=== PATIENT | male | born 1965 | race African-American/Black ===

== ENCOUNTER 2021-06-19 23:19 | Inpatient (IN) | payer OTHER ==
[~2021-06-19] VITALS: Ht 180.3 cm; Wt 230.0 kg
--- NOTE | ~2021-06-19 | EMS ---
Formerly [facility] [address] [place] [address] EMS Patient Care Report Name: NARAYAN VERGARA Room #: 210-P ADM IN M.R.#: [id number] Admission: 06/20/21 Attend Phys: Abe Carlton MD Discharge: Date of : 67 Report #: [id number] THIS REPORT FOR: //name// Report Transmitted: 06/20/2021 08:31 EMS Care Summary [place], [place]/[facility] Incident [id number] @ 06/19/2021 22:01 Incident Location [address] [place] [address] Patient NARAYAN VERGARA Male, 56 Years 1965 Patient Address [address] [place] [address] Patient History Congestive Heart Failure (CHF),Diabetes,Hypertension (HTN),Morbid Obesity,Atrial Fibrillation,Deep Vein Thrombosis,Chronic Kidney Disease, Patient Allergies No known allergies, Patient Medications Senna, Spironolactone, Aspirin, Lovenox, Humalog, Warfarin, Atorvastatin, Polyethlene Glycol, Amiodarone, Torsemide, Lantus, Carvedilol, Digoxin, Zetia, Chief Complaint COVID SYMPTOMS Disposition Transported No Lights/[place] Dispatch Reason Sick Person Transported To [facility] Narrative PUMPER 29/TRUCK 11/MEDIC 30 WERE DISPATCHED TO THE ADDRESS LISTED PREVIOUSLY IN THIS REPORT ON A SICK PATIENT. UPON ARRIVAL, EMS OBSERVED ONE MALE PATIENT Formerly [facility] [address] [place] [address] EMS Patient Care Report Name: NARAYAN VERGARA Room #: 210-P ADM IN M.R.#: [id number] Admission: 06/20/21 Attend Phys: Abe Carlton MD Discharge: Date of : 67 Report #: [id number] SITTING UPRIGHT ON THE FLOOR. PATIENT WAS TRACKING EMS UPON APPROACH. PATIENT INFORMED EMS THAT HE HAD BEEN EXPERIENCING COVID LIKE SYMPTOMS FOR THREE DAYS PRIOR TO EMS ARRIVAL. PATIENT WAS THEN PLACED ON A BRITTNEY CUSTOMER RESPONSE REPRESENTATIVE, CARRIED TO THE COT, AND LOADED INTO THE AMBULANCE WITHOUT INCIDENT. ONCE IN THE AMBULANCE, VITAL SIGN MONITORING CONTINUED. ONCE ENROUTE TO THE RECEIVING FACILITY ([facility]), VITAL SIGN MONITORING CONTINIED AND RADIO REPORT WAS GIVEN. UPON ARRIVAL AT THE RECEIVING FACILITY, PATIENT WAS MOVED FROM THE AMBULANCE TO THE HOSPITAL COT WITHOUT INCIDENT. VERBAL REPORT WAS GIVEN TO THE PATIENT'S NURSE AND PATIENT CARE WAS TRANSFERRED. Initial Vitals @22:43P: 79,R: 16,BP: 144/95,Pain: 0/10,GCS: 15,CO: 3,SpO2: 95,Revised Trauma: 12, Assessments @22:09MENTAL:Person Oriented,Place Oriented,Event Oriented,Time Oriented,SKIN:HEENT:LUNG SOUNDS:ABDOMEN:PELVIS//GI:EXTREMITIES:PULSE:Radial: 2+ Normal,NEURO: Impression Generalized Weakness Procedures @22:09ALS AssessmentResponse: UnchangedSucceeded Timeline :59,Call Received 21:59,Dispatch Notified 22:01,Dispatched 22:01,En Route 22:07,On Scene 22:09,At Patient 22:09,ALS Assessment,Response: UnchangedSucceeded, 22:43,BP: 144/95 M,PULSE: 79,RR: 16 R,SPO2: 95 Ox,ETCO2: ,BG: ,PAIN: 0,GCS: 15, 22:46,Depart Scene 23:07,At Destination 23:31,Call Closed Disclaimer v1.1 Copyright 2020 [facility] This EMS Care Summary contains data elements from the applicable legal record (which may be displayed differently). It is designed to provide pertinent information for the following purposes: continuity of care, clinical quality, and state data reporting. The complete legal record is available to ED staff and administrators of the receiving hospital in [facility]'s Patient Tracker. All data is provided "as is."
[2021-06-19 23:20] VITALS: BP 160/82
[2021-06-19] MEDS ORDERED: ENTRESTO 24 MG1 EACH PO (23:28)
[2021-06-19] MEDS ORDERED: AMIODARONE HCL400 MG PO (23:28)
[2021-06-19] MEDS ORDERED: WARFARIN SODIUM6 MG PO (23:29)
[2021-06-19] MEDS ORDERED: TORSEMIDE20 MG PO (23:29)
[2021-06-20 00:18] LABS: BE(vivo) -3.1 mmol/L (-2 to +3); HCO3 21.9 mmol/L (22.0-26.0); PCO2 39.1 mmHg (35.0-45.0); PO2 91.1 mmHg (80.0-100.0); pH 7.366 (7.360-7.450); sO2 96.8 % (92.0-98.0)
[2021-06-20 01:27] LABS: ABSOLUTE NEUTROPHILS 4.7 thou/uL (1.4-8.2); BASOPHILS 0.6 % (0.0-2.0); EOSINOPHILS 0.7 % (0.0-3.0); HEMATOCRIT 38.2 % (42.0-52.0); HEMOGLOBIN 12.5 gm/dL (14.0-18.0); LYMPHOCYTES 18.7 % (24.0-44.0); MCH 29.1 pg (26.0-34.0); MCHC 32.8 g/dL (28.0-37.0); MCV 88.7 fL (80.0-100.0); MONOCYTES 10.6 % (1.0-8.0); PLATELET COUNT 184 thou/uL (150-400); POLYS 69.4 % (36.0-66.0); RDW 17.1 % (10.5-14.5); WBC 6.7 thou/uL (4.0-11.0)
[2021-06-20 02:06] LABS: CALCIUM 7.7 mg/dL (8.5-10.1); CREATININE 2.5 mg/dL (0.7-1.3); POTASSIUM 4.8 mmol/L (3.5-5.1)
[2021-06-20 02:13] LABS: ALBUMIN 2.6 g/dL (3.4-5.0); TOTAL BILIRUBIN 0.7 mg/dL (0.2-1.0); TOTAL PROTEIN 7.2 g/dL (6.4-8.2); TROPONIN-I 0.08 ng/mL (<0.06)
[2021-06-20 02:16] LABS: URINE BILIRUBIN NEGATIVE (Negative); URINE BLOOD NEGATIVE (Negative); URINE CLARITY CLEAR; URINE COLOR YELLOW; URINE GLUCOSE-RANDOM* 2+ (Negative); URINE KETONES TRACE (Negative); URINE LEUKOCYTES-REFLEX NEGATIVE (Negative); URINE NITRITE-REFLEX NEGATIVE (Negative); URINE PROTEIN (DIPSTICK) 2+ (Negative); URINE SPECIFIC GRAVITY >= 1.030 (1.005-1.035)
[2021-06-20 02:43] LABS: BACTERIA-REFLEX 1-9 Few /HPF (None Seen); CASTS None Seen /LPF (None Seen); CRYSTALS None Seen /LPF (None Seen); MUCUS 4-6 Moderate strn/LPF (None Seen); SQUAMOUS 0-3 Few /LPF (0-3); URINE RBC 1-2 Rare /HPF (NONE SEEN); URINE WBC-REFLEX 0-5 Rare /HPF (0-5)
[2021-06-20 02:54] LABS: APTT 26.8 Seconds (24.5-32.8); INR 2.16; PROTIME 22.7 Seconds (10.5-12.1)
--- NOTE | 2021-06-20 03:25 | NUR ---
PHYSICIAN, THIS CHARGE NURSE AND LICENSE INSPECTOR HAVE BEEN TO PATIENT'S BEDSIDE REPEATEDLY. PATIENT IS NOT ACCEPTING ANY EDUCATION PROVIDED TO HIM. PATIENT IS BELIGERENT AND HAS DONE EVERYTHING TO NOT FOLLOW INSTRUCTIONS FOR HIS CARE. PATIENT HAS BEEN SITTING HIMSELF UP TO SIDE OF BED REGARDLESS OF REQUESTS FOR PATIENT TO REMAIN IN BED FOR HIS SAFETY. PATIENT IS 600+LBS AND EDUCATION HAS BEEN PROVIDED TO KEEP PATIENT SAFE. PATIENT IS REFUSING CARE, BUT IS UNABLE AMBULATE OR LEAVE DEPARTMENT SAFELY. NOT ABLE TO REACH SISTER AT THIS TIME
[2021-06-20 07:15] VITALS: BP 155/84
[2021-06-20 07:52] VITALS: BP 155/84
[2021-06-20 08:49] LABS: CHOLESTEROL 147 mg/dL (<200); HDL CHOLESTEROL 34 mg/dL (>40); LDL CHOLESTEROL 90 mg/dL (<100); TC:HDL 4.3 Ratio (Not establshd); TRIGLYCERIDE 115 mg/dL (<150); VLDL 23 mg/dL (<40)
[2021-06-20 08:50] VITALS: BP 157/45
[2021-06-20 11:07] LABS: BE(vivo) -3.6 mmol/L (-2 to +3); HCO3 22.3 mmol/L (22.0-26.0); PCO2 43.6 mmHg (35.0-45.0); PO2 135.3 mmHg (80.0-100.0); sO2 98.5 % (92.0-98.0)
[2021-06-20 11:08] LABS: pH 7.327 (7.360-7.450)
--- NOTE | 2021-06-20 11:13 | 2DMMODE ---
[address] [address] 2 D/M-MODE ECHOCARDIOGRAM Name: NARAYAN VERGARA Room #: 210-P ADM IN M.R.#: [id number] Admission: 06/20/21 Attend Phys: Abe Carlton MD Discharge: Date of : 67 Report #: [id number] THIS REPORT FOR: cc: [facility] - Clinic physician unknown [facility] - Clinic physician unknown Rodolfo Mejía MD [facility] ~ APPROVED REPORT Study performed: 06/20/2021 09:38:42 EXAM: Comprehensive 2D, Doppler, and color-flow Echocardiogram Patient Location: ER Room #: 210 Status: routine BSA: 3.33 HR: 80 bpm BP: 157/95 mmHg Rhythm: NSR Other Information Study Quality: Technically Difficult Technically limited study due to body habitus, inability to position patient. Indications Congestive Heart Failure Diabetes Dyspnea Cardiomyopathy Hypertension/HDD Morbid Obesity Tricuspid Valve TR Peak Srikanth.: 3.77 m/s TR Peak Gr.: 56.91 mmHg PA Pressure: 57.00 mmHg Left Ventricle Left ventricle is dilated. There is normal left ventricular wall thickness. Unable to assess EF, due to limited echocardiogram. LVEF is unable to be assessed due to suboptimal image quality. This study is not technically sufficient to allow evaluation of the LV diastolic function. [address] [address] 2 D/M-MODE ECHOCARDIOGRAM Name: NARAYAN VERGARA Room #: 210-P ADM IN M.R.#: [id number] Admission: 06/20/21 Attend Phys: Abe Carlton MD Discharge: Date of : 67 Report #: [id number] Right Ventricle Right ventricle is dilated. Right ventricle is not well visualized. Atria Left atrium is dilated. Right atrium is dilated. Aortic Valve The aortic valve is not well visualized. No aortic regurgitation is present. There is no aortic valvular stenosis. Mitral Valve The mitral valve is normal in structure. Mild mitral regurgitation. No evidence of mitral valve stenosis. Tricuspid Valve Tricuspid valve is not well visualized. There is moderate tricuspid regurgitation. Estimated PAP 65-70 mmHg. There is moderate-severe pulmonary hypertension. Pulmonic Valve Pulmonic valve is not well visualized. Great Vessels Aortic root is not well visualized. The inferior vena cava is not well visualized. Pericardium There is no pericardial effusion. <Conclusion> Very limited study LVEF is unable to be assessed due to suboptimal image quality. Probably depressed ejection fraction Grossly normal mitral valve. Mild mitral insufficiency. Mild aortic valve calcification, no Doppler. There is moderate tricuspid regurgitation. Estimated pulmonary artery pressure of 65-70 mmHg. There is no pericardial effusion. <ELECTRONICALLY SIGNED> By: Rodolfo Mejía MD, [facility] 06/20/21 1113 1113 1113 Rodolfo Mejía MD, FACC /INF
[2021-06-20 11:44] VITALS: BP 123/83
[2021-06-20] MEDS ORDERED: HUMALOG100 UNIT/1 SUBQ (13:02)
[2021-06-20] MEDS ORDERED: CARVEDILOL3.125 MG PO (13:02)
[2021-06-20] MEDS ORDERED: LANTUS SUBQ (13:02)
[2021-06-20] MEDS ORDERED: DIGOX125 MCG PO (13:06)
[2021-06-20] MEDS ORDERED: LIPITOR80 MG PO (13:06)
[2021-06-20 15:25] VITALS: BP 138/94
--- NOTE | 2021-06-20 18:32 | NUR ---
ADMITTED THIS PATIENT FROM THE EMERGENCY DEPARTMENT AT 0820AM.ON NASAL CANNULA AT 3LPM.RT ON DUTY PLACED PATIENT ON BIPAP PATIENT HAD SOME SHORTNESS OF BREATH BUT WAS PLACED BACK TO NASAL CANNULA AT 4LPM THIS AFTERNOON.ALL NEEDS ATTENDED.ORDERED FOR SPECIAL BED/MATTRESS.
[2021-06-20 20:15] VITALS: BP 108/61
[2021-06-21 00:05] VITALS: BP 123/75
[2021-06-21 02:06] LABS: GLYCOHEMOGLOBIN (HGB A1C) 11.4 % (4.8-5.6)
[2021-06-21 03:02] LABS: ABSOLUTE NEUTROPHILS 7.7 thou/uL (1.4-8.2); BASOPHILS 0.4 % (0.0-2.0); HEMATOCRIT 38.5 % (42.0-52.0); LYMPHOCYTES 8.1 % (24.0-44.0); MCH 29.6 pg (26.0-34.0); MCHC 33.7 g/dL (28.0-37.0); MCV 87.8 fL (80.0-100.0); MONOCYTES 8.4 % (1.0-8.0); PLATELET COUNT 180 thou/uL (150-400); POLYS 83.1 % (36.0-66.0); RBC 4.38 mil/uL (4.50-6.00); RDW 16.8 % (10.5-14.5); WBC 9.2 thou/uL (4.0-11.0)
[2021-06-21 03:09] LABS: INR 2.29
[2021-06-21 03:24] LABS: CALCIUM 7.9 mg/dL (8.5-10.1); CREATININE 2.6 mg/dL (0.7-1.3); MAGNESIUM 1.3 mg/dL (1.8-2.4); POTASSIUM 5.3 mmol/L (3.5-5.1); TROPONIN-I 0.11 ng/mL (<0.06)
[2021-06-21 04:45] VITALS: BP 105/69
--- NOTE | 2021-06-21 05:09 | NUR ---
PT IS ALERT AND ORIENTED X4 BUT FORGETFUL. COULD BARELY ROLL OVER TO TRANSFER ON TO BIG BOY BED FROM A REGULAR BED. REPORTS HE MIGHT WALK OUT OF HERE TODAY. INFORM PT HE IS SICK AND IN THE HOSPITAL FOR TREATMENT. ON BIPAP AT 40 PERCENT. LUNGS DIMINISHED. ABDOMEN IS ROUND. BOWEL SOUNDS HYPOACTIVE. PT IS OBESE. SCDS PLACED ON PT . PT TOOK THEM OFF REFUSE TO WEAR THEM. CALL LIGHT WITHIN REACH IF NEEDS ASSISTANCE PER NURSING STAFF.
[2021-06-21 07:30] VITALS: BP 107/68
--- NOTE | 2021-06-21 09:27 | EKG ---
[address] [place] [address] ELECTROCARDIOGRAM REPORT Name: NARAYAN VERGARA Room #: 210-P ADM IN M.R.#: [id number] Admission: 06/20/21 Attend Phys: Abe Carlton MD Discharge: Date of : 67 Report #: [id number] [facility] ED Test Date: 2021-06-20 Test Time: 00:28:37 Pat Name: NARAYAN VERGARA Department: Room: 210 Gender: M Vice President Investor Relations: kaushik : 1965 Requested By: Juancho Harris Order Number: [id number] MD: Rodolfo Mejía Measurements Intervals [place] Rate: 80 P: 15 MO: 45 QRS: 98 QRSD: 117 T: 58 QT: 427 QTc: 493 Interpretive Statements Atrial-ventricular dual-paced rhythm No further analysis attempted due to paced rhythm No previous ECG available for comparison Electronically Signed On 06-21-2021 9:27:13 CDT by Rodolfo Mejía [email or web address] <ELECTRONICALLY SIGNED> By: Rodolfo Mejía MD, [facility] 06/21/21 0927 0028 0028 Rodolfo Mejía MD, FACC /EPI
[2021-06-21 11:05] VITALS: BP 96/59
[2021-06-21 13:10] VITALS: BP 100/67
--- NOTE | 2021-06-21 14:35 | NUR ---
osmani completed the initial assessment with pt. upon arrival pt was in discussion w/ unit shift nurse manager, Melisa, asking her to put a message on FB so his family would know he was in the hospital, as he did not bring his phone or laptop to [facility] and does not know anyone's phone number. Melisa explained to pt she couldnt put message on FB. pt indicated he lives with his sister, elizabeth, but she wasnt home when he called ambulance to transport him to hospital. pt stated he has a w/c and cane he uses "every now and again." pt indicated he completes his own adls, but it is a "struggle" so he is interested in home/commuity based services. cm provided pt with resource info.
--- NOTE | 2021-06-21 14:59 | NUR ---
PT WORKED WITH PT/OT THIS AM, HE WAS ABLE TO STAND AT THE EDGE OF BED. PT A/V PACED ON TELEMETRY. PT ABLE TO SWITCH BETWEEN BIPAP AND NASAL CANNULA. PT AFEBRILE, ADEQUATE UOP, BM X4, APPROPRIATE APPETITE. PT ACCIDENTLY PULLED OUT PIV. IV ACCESS TEAM HAS BEEN CONTACTED TO PLACE A NEW LINE. MAGNESIUM WAS BEING REPLACED PER [facility]. PT HAS BEEN THOUROUGHLY UPDATED AND EDUCATED ON PT CONDITION AND POC. PT SLOWLY PROGRESSING TOWARDS POC.
[2021-06-21 20:50] VITALS: BP 102/50
[2021-06-22 03:20] LABS: CALCIUM 8.2 mg/dL (8.5-10.1); CREATININE 2.7 mg/dL (0.7-1.3); POTASSIUM 5.1 mmol/L (3.5-5.1)
[2021-06-22 03:22] LABS: INR 2.26; PROTIME 23.7 Seconds (10.5-12.1)
[2021-06-22 04:45] VITALS: BP 119/66
--- NOTE | 2021-06-22 05:05 | NUR ---
ASSUMED CARE FROM DAY SHIFT ,ASKING IF COULD CALL THE [employer], I DID LOOK UP NUMBER AND GAVE TO PT TO ON HIS ROOM PHONE. PT ON AND OFF THE BIPAP AND NC AT 4L DENIES SOA . LUNG SOUND UNCHANGED AND REMAINS DIMINSIHED. RESTED WELL THROUGHOUT HOULRY ROUNDS DENIES PAIN.
--- NOTE | 2021-06-22 07:00 | NUR ---
ASSUMED CARE FROM DAY SHIFT PT HAVE NO COMPLAINTS WITH CARE, PT CONCERNED REGARDING DISCHARGE AND HOW HE CARE FOR SELF AND PLACEMENT . DENIES SOA , PT ON AND OFF BIPAP, AND NASAL CANNULA. NSR ON TELEVISION NEWS PHOTOGRAPHER , RESTED APPROX 3 HOURS THROUGHOUT THE NIGHT, WILL CONINTMNUE WITH CURRENT PLAN OF CARE.
[2021-06-22 07:10] VITALS: BP 115/70
[2021-06-22 11:25] VITALS: BP 120/82
[2021-06-22 15:35] VITALS: BP 103/65
--- NOTE | 2021-06-22 18:19 | NUR ---
RECEIVED THE PATIENT CONSCIOUS AND ORIENTED. ON AND OFF BIPAP ALTERNATING IT WITH NASAL CANNULA AT 4LPM, SATURATING WELL.NOT IN PAIN OR DISTRESS.WITH FUNES CATHETER INTACT.NOT IN PAIN OR DISTRESS.PATIENT WAS WANTING TO GO HOME, SPKE IN THE AFTERNOON WITH DR. MARTINEZ OVER THE TELEPHONE AND PATIENT DECIDED TO STAY.DR MARTINEZ ORDERED TO RMEOVE THE FUNES CATHTER, CATHETER REMOVED ASEPTICALL AT 1700H, NO COMPLCATIONS NOTED AFTER. PATIENT STILL HAS TO PASS URINE THROUGH THE URINAL OR COMMODE AFTER CATHETER REMOVAL.PATIENT WAS ABLE TO AMBULATE TODAY WITH THE PHYSICAL THERAPIST AND WAS ABLE TO SIT ON A COMMODE.ALL NEEDS ATTENDED.
[2021-06-22 20:15] VITALS: BP 109/69
[2021-06-23 01:53] VITALS: BP 109/69
--- NOTE | 2021-06-23 03:07 | NUR ---
ASSUMED CARE OF PT AT 1900, ASSESSMENT COMPLETED NOTED. PT CONTINUES ON NC AT 4LPM WITH BIPAP AT [facility]. PT IS A/O X4, PT DENIES PAIN OR INCREASED SOA GREATER THAN NORMAL. WILL CONTINUE TO WORK TOWARDS PT'S POC.
[2021-06-23 03:48] VITALS: BP 122/64
[2021-06-23 04:21] LABS: INR 2.82; PROTIME 29.3 Seconds (10.5-12.1)
[2021-06-23 06:17] LABS: CREATININE 2.8 mg/dL (0.7-1.3); MAGNESIUM 1.5 mg/dL (1.8-2.4); POTASSIUM 4.6 mmol/L (3.5-5.1)
[2021-06-23 07:45] VITALS: BP 110/72
[2021-06-23 08:05] VITALS: BP 114/75
[2021-06-23 11:45] VITALS: BP 114/75
[2021-06-23 15:50] VITALS: BP 125/87
[2021-06-24 01:15] VITALS: BP 131/85
--- NOTE | 2021-06-24 03:32 | NUR ---
PT IS ALERT AND ORIENTED X4. LUNGS ARE DIMINISHED. ON 3 LITERS NASAL CANULA O2 SATURATIONS ARE 90 PERCENT. TRIED TO GET OUT OF BED. ASISTED PT BACK IN BED . REQUESTING TO LEAVE. EXPLAIN TO PT MIDDLE OF NIGHT. PT DID VOMIT X1. PACED ON THE MONITOR. DENIES ANY COMPLAINT OF PAIN. VOIDED IN THE BED CLEAN THE BED UP. ONGOING CARE AND MONITORING AT THIS TIME. CALL LIGHT WITHIN REACH IF NEEDS ASSISTANCE PER NURSING.
[2021-06-24 05:11] VITALS: BP 159/130
[2021-06-24 07:30] VITALS: BP 137/78
--- NOTE | 2021-06-24 08:37 | NUR ---
RT called to patient room because Bipap was alarming proximal line diconnected. Upon arrival RT notice patient's Sat was 86% not on any oxygen or bipap. RT calibrated Bipap and reconnected proximal line. RT informed RN that next time patient needed to be on his 5L of oxygen since bipap was alarming.
[2021-06-24 10:09] LABS: HCO3 32.8 mmol/L (22.0-26.0); PCO2 50.7 mmHg (35.0-45.0); pH 7.429 (7.360-7.450); sO2 96.3 % (92.0-98.0)
[2021-06-24 11:25] VITALS: BP 142/79
[2021-06-24 15:30] VITALS: BP 149/97
[2021-06-24 20:15] VITALS: BP 138/83
[2021-06-25 04:39] LABS: CALCIUM 8.4 mg/dL (8.5-10.1); POTASSIUM 4.2 mmol/L (3.5-5.1)
[2021-06-25 04:45] VITALS: BP 124/88
[2021-06-25 04:45] LABS: INR 3.06; PROTIME 31.6 Seconds (10.5-12.1)
--- NOTE | 2021-06-25 05:27 | NUR ---
RECEIVED THE PATIENT CONSCIOUS AND ORIENTED X4.ON BIPAP AT 40% FIO2.NOT IN DISTRESS.ASSISTED PATIENT TO TURN FROM SIDE TO SIDE.ALL NEEDS ATTENDED.HAD SHORT RUN VTACH DURING THE NIGHT,PATIENT WAS ASYMPTOMATIC, STORE DETECTIVE INFORMED, TO OBSERVE.OTHERWISE, PACED RYTHM ON THE MONITOR.
[2021-06-25 07:15] VITALS: BP 127/78
--- NOTE | 2021-06-25 11:36 | NUR ---
Spoke with patient who is more alert today. Patient reports he uses oxygen at home only at night. Patient uses a walker if needed otherwise he ambulates independently. Discussed post acute care. Patient reports he has been at [facility] one year ago and not a good experience. He reports he has been at [facility] acute rehab and would like acute rehab. Discussed option of 5N and patient declines he wants acute rehab. Referral to [facility] for review.
--- NOTE | 2021-06-25 11:47 | NUR ---
FAXED REFERRAL AND NEGATIVE COVID RESULT (06/20/21) TO [facility]. WILL CONFIRM THEY RECEIVED AND BED AVAILABILITY. [facility] P [phone]; FAX [phone]
[2021-06-25 12:19] VITALS: BP 109/83
[2021-06-25 15:40] VITALS: BP 102/57
--- NOTE | 2021-06-25 16:35 | NUR ---
Referral to [facility] acute rehab. sp with [facility] lorenzo who reports their phys wants a Plan B. They want nursing facility accepting as they believe not enough support at home. Patient not agreeable to nursing facility. Patient sp with [facility] and reported he has sister, brother in law and nephew in home setting. He has been looking for alternate housing for handicapped equiptment. Gem sp with phys and reports they are accepting and will submit for auth.
--- NOTE | 2021-06-25 17:12 | NUR ---
PT UP TO CHAIR WITH PT/OT TODAY AND TOOK IN GOOD PO. PT AGREED TO TRY AND GOTO REHAB FACIALITY AFTER DISCHARGE. WILL CONTINUE TO ASSESS.
[2021-06-25 20:15] VITALS: BP 112/88
[2021-06-26 04:45] VITALS: BP 98/61
[2021-06-26 05:37] LABS: INR 3.93; PROTIME 40.1 Seconds (10.5-12.1)
--- NOTE | 2021-06-26 06:50 | NUR ---
RECEIVED THE PATIENT CONSCIOUS AND ORIENTED.ON NASAL CANNULA AT 2LPM, SATURATING WELL.ON BIPAP AT NIGHT DURING SLEEP.NOT IN PAIN OR DISTRESS.ALL NEEDS ATTENDED.
[2021-06-26 07:00] VITALS: BP 99/75
[2021-06-26 11:00] VITALS: BP 111/82
--- NOTE | 2021-06-26 16:23 | NUR ---
Cont to await auth for [facility] rehab. Patient reports he plans to call insurance. He reports if no auth by 10:00 tomorrow he wants to dc home. Updated phys.
[2021-06-26 16:30] VITALS: BP 102/58
--- NOTE | 2021-06-26 19:28 | NUR ---
PT WAS UP TO CHAIR TODAY AND TOOK IN GOOD PO. PT DIURESING WELL AND STATES HE IS LESS SHORT OF BREATH WITH EXERTION. PLAN FOR DC IN THE AM TO [facility].
[2021-06-26 19:33] VITALS: BP 107/71
[2021-06-27] VITALS (8 sets, daily range): BP systolic 91–108; BP diastolic 52–77
--- NOTE | 2021-06-27 07:36 | NUR ---
ASSUME CARE 1900. PT/VITALS STABLE. DENIES ANY PAIN. MODERATE TOLERANCE TO ACTIVITY. PT/OT WORKING WITH PT. ASSESSMENT CHARTED, PROGRESSING WELL WITH POC. NO DISTRESS NOTED THROUGH THE NIGHT. AV PACED ON MONITOR. PLAN IS POSSIBLE DISCHARGE TODAY TO REHAB IF APPROVED. WILL CONTINUE TO MONITOR AND FOLLOW WITH POC
[2021-06-27 10:46] LABS: INR 2.56; PROTIME 26.7 Seconds (10.5-12.1)
--- NOTE | 2021-06-27 12:24 | NUR ---
[facility] still pending ins auth as of this morning. They will let me know when they hear back from the insurance plan.Pt anxious to go to rehab or get back home. The attending is aware and cm to request hh orders if he discharges home. The pt has a home triology per [facility] and their liason was here visiting with his yesterday. Compliance was stressed as the ins plan will not cover it if he does not use it regularly.
--- NOTE | 2021-06-27 12:57 | NUR ---
FAXED CLINICAL UPDATES TO [facility]. WILL CONFIRM THEY RECEIVED. [facility] P [phone]; FAX [phone]; M [phone]
[2021-06-27] MEDS ORDERED: TRADJENTA5 MG PO (14:25)
[2021-06-27] MEDS ORDERED: CEFUROXIME500 MG PO (14:25)
[2021-06-27] MEDS ORDERED: DEMADEX20 MG PO (14:25)
[2021-06-27] MEDS ORDERED: IPRAT-ALBUT 0.5-3 ML INH (14:25)
[2021-06-27] MEDS ORDERED: MELATONIN5 M1 PO (14:25)
[2021-06-27] MEDS ORDERED: PACERONE 200 M200 M1 PO (14:25)
[2021-06-27] MEDS ORDERED: JANTOVEN2 MG PO (14:25)
[2021-06-27] MEDS ORDERED: PROTONIX 20 MG20 M1 PO (14:25)
[2021-06-27] MEDS ORDERED: PULMICORT0.5 MG/21 INH (14:25)
[2021-06-27] MEDS ORDERED: ACETAMINOPHEN325 M1 PO (14:25)
--- NOTE | 2021-06-27 14:27 | NUR ---
FAXED REFERRAL TO [facility]. PATIENT HAD SERVICES WITH THEM IN NOVEMBER 2020. SPOKE TO JEROME/INTAKE REGARDING PATIENT'S PLAN TO DISCHARGE TODAY, 06/27/21. THEY WILL FOLLOW UP SOON THEY REVIEW REFERRAL. [facility] P [phone]; FAX [phone]
--- NOTE | 2021-06-27 16:11 | NUR ---
FAXED REFERRAL AND NEGATIVE COVID RESULT (06/20/21) TO [facility]. WILL CONFIRM WITH RAZIA/LIAISON THAT THEY RECEIVED AND AVAILABILITY. [facility] P [phone]; FAX [phone]; M [phone]
--- NOTE | 2021-06-27 17:38 | NUR ---
FAXED DISCHARGE ORDERS AND SUMMARY TO [facility]. WILL CONFIRM THEY RECEIVED. [facility] P [phone]; FAX [phone]
--- NOTE | 2021-06-27 19:17 | NUR ---
1830 DISCHARGE INSTRUCTIONS AMD NEW MED INFO GIVEN TO PT. PT AWARE ABOUT OUTPT APPOINTMENTS. IV AND TELE D/C, ALL BELONGINGS WITH PT. EMS TRANSPORTATION HERE FOR PT
== END 2021-06-27 19:30 | disposition home health service (06) | DRG 871 ==
LOC: ER 23:19 → EROBS 06-20 02:10 → 2N 06-20 02:10
PROVIDERS: Emergency Medicine; Internal Medicine; Nurse Practitioner; Pediatrics; ADMIT Internal Medicine; ATTEND Internal Medicine
PROC: 5A09357 Assistance with Respiratory Ventilation, Less than 24 Consecutive Hours, Continuous Positive Airway Pressure (ICD-10-PCS; principal; 2021-06-20)
PROC: 5A09357 Assistance with Respiratory Ventilation, Less than 24 Consecutive Hours, Continuous Positive Airway Pressure (ICD-10-PCS; 2021-06-21)
PROC: 5A0935A Assistance with Respiratory Ventilation, Less than 24 Consecutive Hours, High Flow/Velocity Cannula (ICD-10-PCS; 2021-06-21)
PROC: 5A09357 Assistance with Respiratory Ventilation, Less than 24 Consecutive Hours, Continuous Positive Airway Pressure (ICD-10-PCS; 2021-06-22)
PROC: 5A09357 Assistance with Respiratory Ventilation, Less than 24 Consecutive Hours, Continuous Positive Airway Pressure (ICD-10-PCS; 2021-06-23)
PROC: 5A09357 Assistance with Respiratory Ventilation, Less than 24 Consecutive Hours, Continuous Positive Airway Pressure (ICD-10-PCS; 2021-06-24)
PROC: 5A09357 Assistance with Respiratory Ventilation, Less than 24 Consecutive Hours, Continuous Positive Airway Pressure (ICD-10-PCS; 2021-06-25)
PROC: 5A09357 Assistance with Respiratory Ventilation, Less than 24 Consecutive Hours, Continuous Positive Airway Pressure (ICD-10-PCS; 2021-06-26)
PROC: 5A09357 Assistance with Respiratory Ventilation, Less than 24 Consecutive Hours, Continuous Positive Airway Pressure (ICD-10-PCS; 2021-06-27)
DX: A41.9 Sepsis, unspecified organism (principal); I50.23 Acute on chronic systolic (congestive) heart failure; J96.21 Acute and chronic respiratory failure with hypoxia; N17.0 Acute kidney failure with tubular necrosis; J69.0 Pneumonitis due to inhalation of food and vomit; I13.0 Hypertensive heart and chronic kidney disease with heart failure and stage 1 through stage 4 chronic kidney disease, or unspecified chronic kidney disease; E44.0 Moderate protein-calorie malnutrition; I48.20 Chronic atrial fibrillation, unspecified; E66.2 Morbid (severe) obesity with alveolar hypoventilation; D68.59 Other primary thrombophilia; N18.4 Chronic kidney disease, stage 4 (severe); Z68.45 Body mass index [BMI] 70 or greater, adult; I42.9 Cardiomyopathy, unspecified; Z20.822 Contact with and (suspected) exposure to COVID-19; E11.22 Type 2 diabetes mellitus with diabetic chronic kidney disease; E78.5 Hyperlipidemia, unspecified; R53.81 Other malaise; I48.0 Paroxysmal atrial fibrillation; Z60.2 Problems related to living alone; Z95.810 Presence of automatic (implantable) cardiac defibrillator; Z79.01 Long term (current) use of anticoagulants
CPT/HCPCS: 10081